=== PATIENT | female | born 1970 | race Caucasian/White ===

== ENCOUNTER 2021-04-01 11:57 | Day surgery (SDC) | payer BC ==
[~2021-04-01] VITALS: Ht 162.6 cm; Wt 70.7 kg
[~2021-04-01 11:57] MED LIST: ALPR.5 PO; CYCL10 PO; ZOLP10 PO
[2021-04-01] MEDS ORDERED: BUPR75 PO (12:22)
== END 2021-04-01 14:34 | disposition home or self-care (01) ==
LOC: ORSCSDS 11:57
PROVIDERS: Internal Medicine Gastroenterology
PROC: 0DBK8ZX Excision of Ascending Colon, Via Natural or Artificial Opening Endoscopic, Diagnostic (ICD-10-PCS; principal; 2021-04-01 13:15)
PROC: 0DB58ZX Excision of Esophagus, Via Natural or Artificial Opening Endoscopic, Diagnostic (ICD-10-PCS; principal; 2021-04-01 13:15)
PROC: 0DB98ZX Excision of Duodenum, Via Natural or Artificial Opening Endoscopic, Diagnostic (ICD-10-PCS; principal; 2021-04-01 13:15)
PROC: 0DB78ZX Excision of Stomach, Pylorus, Via Natural or Artificial Opening Endoscopic, Diagnostic (ICD-10-PCS; principal; 2021-04-01 13:15)
DX: D50.9 Iron deficiency anemia, unspecified (principal); D12.2 Benign neoplasm of ascending colon; K29.70 Gastritis, unspecified, without bleeding; B96.81 Helicobacter pylori [H. pylori] as the cause of diseases classified elsewhere; K44.9 Diaphragmatic hernia without obstruction or gangrene; K21.9 Gastro-esophageal reflux disease without esophagitis; Z87.891 Personal history of nicotine dependence; Z79.899 Other long term (current) drug therapy
CPT/HCPCS: 88305; 88342; J2704; J7120

== ENCOUNTER 2021-04-04 12:46 | Day surgery (SDC) | payer BC ==
[~2021-04-04] VITALS: Ht 163 cm; Wt 71.1 kg
[~2021-04-04 12:46] MED LIST changes: +BUPR75 PO
[2021-04-04] MEDS ORDERED: Robaxin750 MG PO (13:04)
--- NOTE | 2021-04-04 13:26 | NUR ---
Ambulatory in Day Surgery History, Chart, Medications and Allergies reviewed before start of procedure. Patient reports completing Chlorhexadine shower X2 prior to admission to hospital.
--- NOTE | 2021-04-04 15:08 | NUR ---
TOOK OVER PATIENT CARE AFTER REPORT WAS RECEIVED.
--- NOTE | 2021-04-04 18:04 | NUR ---
Patient up to Ambulate independently. Gait steady. Cece Paws warming gown applied. History, Chart, Medications and Allergies reviewed before start of procedure.Lungs clear T/O to Auscultation. Patient States Post-Procedure ride home has been arranged. Discharged via wheelchair to private car for ride home.
== END 2021-04-04 22:48 | disposition home or self-care (01) ==
LOC: ORSCMMR 12:46 → ORD 14:15 → ORSCMMR 14:15
PROVIDERS: Obstetrics & Gynecology
PROC: 0U5B8ZZ Destruction of Endometrium, Via Natural or Artificial Opening Endoscopic (ICD-10-PCS; principal; 2021-04-04 14:15)
PROC: 0UDB8ZX Extraction of Endometrium, Via Natural or Artificial Opening Endoscopic, Diagnostic (ICD-10-PCS; principal; 2021-04-04 14:15)
DX: N92.1 Excessive and frequent menstruation with irregular cycle (principal); N94.6 Dysmenorrhea, unspecified; D50.0 Iron deficiency anemia secondary to blood loss (chronic); F17.210 Nicotine dependence, cigarettes, uncomplicated; Z79.899 Other long term (current) drug therapy
CPT/HCPCS: 88305; A9270; J0690; J1100; J1885; J2250; J2405; J2704; J3010; J7120